=== PATIENT | male | born 1995 ===

== ENCOUNTER 2017-01-05 05:30 | Emergency (ER) | payer OTHER ==
[2017-01-05] MEDS ORDERED: Acetaminophen TAB* 325 MG PO ONE (05:56)
--- NOTE | 2017-01-05 06:21 | ED ---
Flynn De Luna Angela, scribed for Kylee Mayes MD on 01/05/17 at 0558 . Head Injury - HPI Summary HPI Summary: This pt is a 21 y/o male accompanied by his sister presenting to [facility] c/o head pain s/p fall 2 days ago, on Thursday. Pt reports she tripped 2 days ago and hit the back of his head against a wooden floor. Pt notes he slept and woke up with throbbing pain. He then went back to sleep and his pain subsided until today at 0400. Pt states difficulty concentrating. He reports he vomited once 2 days ago. Pt denies LE weakness, numbness, or paresthesia. No PMHx. - History Of Current Complaint Chief Complaint: EDHeadInjury Stated Complaint: HEAD INJURY Hx Obtained From: Patient Mechanism Of Injury: Fall From A Standing Position Onset of Pain: Days Pain Intensity: 6 Location of Head Injury: Occipital Location: Discrete At: - back of the head Associated Signs And Symptoms: Other: - trouble concentrating - Allergies/Home Medications Allergies/Adverse Reactions: Allergies Allergy/AdvReac Type Severity Reaction Status Date / Time No Known Allergies Allergy Verified 01/05/17 05:36 PMH/Surg Hx/FS Hx/Imm Hx Endocrine/Hematology History: Denies: Hx Diabetes Cardiovascular History: Denies: Hx Hypertension Infectious Disease History: No Infectious Disease History: Denies: Traveled Outside the [place] in Last 30 Days - Family History Known Family History: Negative: Diabetes - Social History Occupation: Student - [employer], studying applied economics Alcohol Use: None Hx Substance Use: No Substance Use Type: Reports: None Hx Tobacco Use: No Smoking Status (MU): Never Smoked Tobacco Review of Systems Negative: Fever, Chills Eyes: Negative Negative: Chest Pain Negative: Shortness Of Breath Positive: Vomiting - 1 episode Musculoskeletal: Negative Positive: Headache - back of the head, throbbing pain All Other Systems Reviewed And Are Negative: Yes Physical Exam Triage Information Reviewed: Yes Vital Signs On Initial Exam: Initial Vitals Temp Pulse Resp BP Pulse Ox 98.1 F 62 16 138/76 99 01/05/17 05:34 01/05/17 05:34 01/05/17 05:34 01/05/17 05:34 01/05/17 05:34 Vital Signs Reviewed: Yes Appearance: Positive: Well-Appearing, No Pain Distress Skin: Positive: Warm, Skin Color Reflects Adequate Perfusion, Dry Head/Face: Positive: Normal Head/Face Inspection Eyes: Positive: EOMI, DE ENT: Positive: Pharynx normal, TMs normal Neck: Positive: Supple, Nontender Respiratory/Lung Sounds: Positive: Clear to Auscultation, Breath Sounds Present. Negative: Rales, Rhonchi, Wheezes Cardiovascular: Positive: RRR. Negative: Murmur, Rub, Other - gallop Abdomen Description: Positive: Nontender, Soft. Negative: Distended, Guarding, Other: - rebound Bowel Sounds: Positive: Present Musculoskeletal: Positive: Strength/ROM Intact. Negative: Edema Left, Edema Right Neurological: Positive: Sensory/Motor Intact, Alert, Oriented to Person Place, Time, CN Intact II-III, Other - Normal strength in UE and LE bilaterally.. Negative: Cerebellar Dysfunction Psychiatric: Positive: Affect/Mood Appropriate - Normal affect Diagnostics - Vital Signs Vital Signs Temp Pulse Resp BP Pulse Ox 01/05/17 05:34 98.1 F 62 16 138/76 99 - Laboratory Lab Statement: Any lab studies that have been ordered have been reviewed, and results considered in the medical decision making process. Head Injury Course/Dx Course Of Treatment: 21 yo male who fell on Sat with intermittent headache since then awaiting a CT brain, pt has already been given concussion instructions, if CT is negative he will be going home - Diagnoses Provider Diagnoses: Concussion Discharge - Discharge Plan Condition: Stable Disposition: OTHER Discharge Disposition Comment: to be determined by am attending Patient Education Materials: Concussion (ED) Referrals: [facility] [Primary Care Provider] - The documentation as recorded by the Flynn bhat Angela accurately reflects the service I personally performed and the decisions made by me, Kylee Mayes MD.
[2017-01-05 06:49] VITALS: BP 122/69
--- NOTE | 2017-01-05 08:03 | RAD ---
INDICATION: Headaches COMPARISON: None TECHNIQUE: Noncontrast axial source images were acquired from the skull base to the vertex. FINDINGS: Ventricles/sulci: The ventricles and cisterns are normal in size and configuration for age. Brain parenchyma: There is no focal parenchymal finding, evidence of intracranial mass, or intracranial mass effect. Intracranial hemorrhage:None. Extra-axial spaces: There are no abnormal extra axial fluid collections or evidence of extra-axial mass. Calvarium: There is no calvarial fracture or other calvarial abnormality. Scalp: There is no evidence of scalp or extracalvarial soft tissue abnormality. Paranasal sinuses/mastoid: There is frontal, bilateral ethmoid, and left maxillary antral sinusitis with short air-fluid level in the left maxillary antrum. Other: None. IMPRESSION: Sinusitis, otherwise negative.
== END 2017-01-05 06:45 ==
LOC: ED 05:30
DX: S06.0X9A Concussion with loss of consciousness of unspecified duration, initial encounter (principal); R51 Headache; R11.10 Vomiting, unspecified; W19.XXXA Unspecified fall, initial encounter; Y93.9 Activity, unspecified; Y92.9 Unspecified place or not applicable; Y99.9 Unspecified external cause status
CPT/HCPCS: 70450; 99282; A9270-GY